=== PATIENT | male | born 1980 | race Caucasian/White ===

== ENCOUNTER 2021-05-31 12:26 | Emergency (ER) | payer SELFPAY ==
--- NOTE | 2021-05-31 14:16 | EDPHYS ---
Physician Documentation [facility] Name: Enrique Hinson Age: 40 yrs Sex: Male : 1980 Arrival Date: 05/31/2021 Time: 12:39 Bed 11 Private MD: ED Physician Chalino Mckeon HPI: 05/31 14:15 This 40 yrs old Male presents to ER via Unassigned with complaints of Cough, kb Congestion, Runny Nose. 14:12 Pt reports runny nose, cough and ear pain for 3 days. Denies fever. Needs covid test kb before he can go back to work. 14:15 The patient or guardian reports cough. Onset: The symptoms/episode began/occurred 3 kb day(s) ago. Severity of symptoms: At their worst the symptoms were mild, in the emergency department the symptoms are unchanged. Modifying factors: The symptoms are alleviated by nothing, the symptoms are aggravated by nothing. Associated signs and symptoms: Pertinent positives: earache, rhinorrhea, Pertinent negatives: chest pain, diarrhea, fever, nausea, sore throat, vomiting. The patient has not experienced similar symptoms in the past. The patient has not recently seen a physician. Historical: - Allergies: 14:46 No Known Allergies; jl7 - Home Meds: 14:46 None [Active]; jl7 - PMHx: 14:46 Hypertensive disorder; jl7 - PSHx: 14:46 Appendectomy; jl7 - Immunization history:: Adult Immunizations up to date. - Social history:: Smoking status: Patient denies any tobacco usage or history of. ROS: 14:14 Constitutional: Negative for fever, chills, and weight loss. kb 14:14 ENT: Positive for ear pain, rhinorrhea. 14:14 Respiratory: Positive for cough, Negative for dyspnea on exertion, hemoptysis, orthopnea, pleurisy, shortness of breath, sputum production, wheezing. 14:14 All other systems are negative. Exam: 14:15 Constitutional: This is a well developed, well nourished patient who is awake, alert, kb and in no acute distress. Head/Face: Normocephalic, atraumatic. ENT: Moist Mucous membranes Cardiovascular: Regular rate and rhythm with a normal S1 and S2. No gallops, murmurs, or rubs. No pulse deficits. Respiratory: Respirations even and unlabored. No increased work of breathing. Talking in full sentences Skin: Warm, dry with normal turgor. Normal color. MS/ Extremity: Pulses equal, no cyanosis. Neurovascular intact. Full, normal range of motion. Neuro: Awake and alert, GCS 15, oriented to person, place, time, and situation. Moves all extremities. Normal gait. Psych: Awake, alert, with orientation to person, place and time. Behavior, mood, and affect are within normal limits. Vital Signs: 13:49 Pulse Ox 97% ; jl7 14:16 Pulse 79; Resp 18; Temp 98.3; Pulse Ox 97% ; Weight 88.45 kg; Height 5 ft. 10 in. kb (177.80 cm); 14:34 BP 122 / 87; kb 14:16 Body Mass Index 27.98 (88.45 kg, 177.80 cm) kb MDM: 14:11 Patient medically screened. kb 14:12 Data reviewed: vital signs, nurses notes. Data interpreted: Pulse oximetry: on room air kb is 97 %. Interpretation: normal. Counseling: I had a detailed discussion with the patient and/or guardian regarding: the historical points, exam findings, and any diagnostic results supporting the discharge/admit diagnosis, the need for outpatient follow up, a family practitioner, to return to the emergency department if symptoms worsen or persist or if there are any questions or concerns that arise at home. 05/31 14:11 Order name: COVID-19 SARS RT PCR (Document "Date of Onset" if Symptomatic); Complete kb Time: 16:23 Administered Medications: No medications were administered Disposition: 15:35 Co-signature as Attending Physician, Chalino Mckeon MD I agree with the assessment and kdr plan of care. Disposition Summary: 05/31/21 14:16 Discharge Ordered Location: Home kb Condition: Stable kb Diagnosis - Acute upper respiratory infection, unspecified kb Followup: kb - With: Emergency Department - When: As needed - Reason: Worsening of condition Followup: kb - With: Private Physician - When: 2 - 3 days - Reason: Recheck today's complaints, Continuance of care, Re-evaluation by your physician Discharge Instructions: - Discharge Summary Sheet kb - Upper Respiratory Infection, Adult, [id number] kb - Viral Respiratory Infection, [id number] kb Forms: - Medication Reconciliation Form kb - Thank You Letter kb - Antibiotic Education kb - Prescription Opioid Use kb Signatures: Dispatcher [employer] EDStacey Chinchilla, TAMPER OPERATOR-C NUPUR-Chalino Mirza MD MD kdr Leal, Jahala RN RN jl7 Corrections: (The following items were deleted from the chart) 14:47 14:46 PSHx: None; jl7 jl7
--- NOTE | 2021-05-31 14:48 | ER ---
Nurse's Notes [facility] Name: Enrique Hinson Age: 40 yrs Sex: Male : 1980 Arrival Date: 05/31/2021 Time: 12:39 Bed 11 Private MD: Diagnosis: Acute upper respiratory infection, unspecified Presentation: 05/31 13:49 Chief complaint: Patient states: runny nose, cough, ear pain x 3 days. jl7 13:49 Coronavirus screen: Vaccine status: Patient reports receiving the 1st dose of the Covid jl7 vaccine. Client presents with at least one sign or symptom that may indicate coronavirus-19. Standard/surgical mask placed on the client. Ebola Screen: No symptoms or risks identified at this time. Initial Sepsis Screen: Does the patient meet any 2 criteria? No. Patient's initial sepsis screen is negative. Does the patient have a suspected source of infection? No. Patient's initial sepsis screen is negative. Risk Assessment: Do you want to hurt yourself or someone else? Patient reports no desire to harm self or others. Onset of symptoms was May 28, 2021. 13:49 Method Of Arrival: Ambulatory 7 13:49 Acuity: MARILIN 4 jl7 Historical: - Allergies: 14:46 No Known Allergies; jl7 - Home Meds: 14:46 None [Active]; jl7 - PMHx: 14:46 Hypertensive disorder; jl7 - PSHx: 14:46 Appendectomy; jl7 - Immunization history:: Adult Immunizations up to date. - Social history:: Smoking status: Patient denies any tobacco usage or history of. Vital Signs: 13:49 Pulse Ox 97% ; jl7 14:16 Pulse 79; Resp 18; Temp 98.3; Pulse Ox 97% ; Weight 88.45 kg; Height 5 ft. 10 in. kb (177.80 cm); 14:34 BP 122 / 87; kb 14:16 Body Mass Index 27.98 (88.45 kg, 177.80 cm) ED Course: 12:39 Patient arrived in ED. am2 13:38 St[facility] Guevara FNP-C [facility] kb 13:38 Chalino Mckeon MD is Attending Physician. kb 14:45 Amie Bernstein RN is Primary Nurse. jl7 14:46 Triage completed. jl7 14:46 Arm band placed on right wrist. 14:47 COVID swab sent to lab. Patient did not have IV access during this emergency room visit.jl7 Administered Medications: No medications were administered Outcome: 14:16 Discharge ordered by . sammy 14:47 Discharged to home ambulatory. jl7 14:47 Condition: stable 14:47 Discharge instructions given to patient, Instructed on discharge instructions, follow up and referral plans. Demonstrated understanding of instructions, follow-up care. 14:47 Patient left the ED. jl7 Signatures: Stacey Guevara, LEAF BLENDER-C LEAF BLENDER-Ckb Amie Bernstein RN RN jl7 Myla Leger am2 Corrections: (The following items were deleted from the chart) 14:47 14:46 PSHx: None; juan jl
[2021-05-31 14:58] VITALS: O2SAT 97
[2021-05-31 14:59] VITALS: TEMP 98.3
[2021-05-31 15:00] VITALS: BP 122/87
== END 2021-05-31 14:47 | disposition home or self-care (01) ==
LOC: ER 12:26
DX: U07.1 COVID-19 (principal); J06.9 Acute upper respiratory infection, unspecified
CPT/HCPCS: 99281; U0003

== ENCOUNTER 2021-10-19 14:12 | Emergency (ER) | payer OTHER, SELFPAY ==
[2021-10-19] MEDS ORDERED: CYCLOBENZAPRINE 10 MG TAB ONE (15:34)
[2021-10-19] MEDS ORDERED: KETOROLAC 30 MG/ML INJ ONE (15:34)
--- NOTE | 2021-10-19 17:02 | RAD REPORT ---
EXAM DESCRIPTION: RAD - C Spine Ap/Lat - 10/19/2021 4:52 pm CLINICAL HISTORY: PAIN COMPARISON: No comparisons FINDINGS: Cervical bodies are normal in height and alignment.No fracture or acute bony process seen. Slight disc thinning with posterior osteophyte noted at C3-4 and C4-5. No prevertebral soft tissue thickening or other suspicious soft tissue finding. The odontoid is normal and the lateral masses are symmetric. IMPRESSION: Mild upper cervical spondylosis.
--- NOTE | 2021-10-19 17:32 | ER ---
Nurse's Notes [facility] Name: Enrique Hinson Age: 41 yrs Sex: Male : 1980 Arrival Date: 10/19/2021 Time: 14:18 Bed 11 Private MD: Diagnosis: Sprain of ligaments of cervical spine, initial encounter;Radiculopathy, cervical region Presentation: 10/19 14:26 Chief complaint: Patient states: Right sided neck pain and back pain. Injured neck and ld1 back at work 1 month ago. Pt c/o Limited ROM in neck. Coronavirus screen: At this time, the client does not indicate any symptoms associated with coronavirus-19. Ebola Screen: No symptoms or risks identified at this time. Initial Sepsis Screen: Does the patient meet any 2 criteria? No. Patient's initial sepsis screen is negative. Does the patient have a suspected source of infection? No. Patient's initial sepsis screen is negative. Risk Assessment: Do you want to hurt yourself or someone else? Patient reports no desire to harm self or others. Onset of symptoms was October 19, 2021. 14:26 Method Of Arrival: Ambulatory ld1 14:26 Acuity: MARILIN 4 ld1 Triage Assessment: 14:27 General: Appears in no apparent distress. comfortable, Behavior is calm, cooperative, ld1 appropriate for age. Pain: Complains of pain in scalp and back Pain does not radiate. Pain currently is 7 out of 10 on a pain scale. EENT: No signs and/or symptoms were reported regarding the EENT system. Neuro: Level of Consciousness is awake, alert, obeys commands, Oriented to person, place, time, situation. Respiratory: Airway is patent Respiratory effort is even, unlabored. Historical: - Allergies: 14:27 No Known Allergies; ld1 - Home Meds: 14:27 None [Active]; ld1 - PMHx: 14:27 Hypertensive disorder; ld1 - PSHx: 14:27 Appendectomy; ld1 - Immunization history:: Adult Immunizations up to date, Client reports having NOT received the Covid vaccine. - Social history:: Smoking status: Patient denies any tobacco usage or history of. Patient uses alcohol, occasionally. Vital Signs: 14: BP 146 / 108; Pulse 70; Resp 18; Temp 98.3(TE); Pulse Ox 99% on R/A; Weight 88.45 kg; ld1 Height 5 ft. 9 in. (175.26 cm); Pain 6/10; 14:26 Body Mass Index 28.80 (88.45 kg, 175.26 cm) ld1 ED Course: 14:18 Patient arrived in ED. am2 14:26 [facility]att [facility] 14:26 Mohamud Bernardo MD is Attending Physician. [facility] 14:26 Triage completed. ld1 14:27 Arm band placed on right wrist. ld1 15:36 Anai Moreno, RN is Primary Nurse. iw 16:54 XRAY C Spine Ap/lat In Process Unspecified. EDMS 17:30 Benjamin Ludwig MD is Referral Physician. [facility] Administered Medications: 15:37 Drug: Ketorolac 60 mg Route: IM; Site: right deltoid; iw 15:37 Drug: Flexeril (cyclobenzaprine) 10 mg Route: PO; iw Outcome: 17:31 Discharge ordered by . [facility] 17:58 Patient left the ED. iw Signatures: Dispatcher [employer] EDCO Anai Moreno, RN RN iw Myla Leger am2 Kelsie Almonte RN RN 1 Zofia Pratt FNP [place] [id number]
--- NOTE | 2021-10-19 17:32 | EDPHYS ---
Physician Documentation [facility] Name: Enrique Hinson Age: 41 yrs Sex: Male : 1980 Arrival Date: 10/19/2021 Time: 14:18 Bed 11 Private MD: DENYS Physician Mohamud Bernardo HPI: 10/19 14:30 This 41 yrs old Male presents to ER via Ambulatory with complaints of Neck and Upper jh7 Back Pain. 14:30 Patient reports that 1 month ago he injured the right side of his neck while working. 7 States that the pain is on the right side of his neck and that he will get shooting pain down his right arm. Reports that he has full range of motion, but that the pain is starting to interfere with his work.. Historical: - Allergies: 14:27 No Known Allergies; ld1 - Home Meds: 14:27 None [Active]; ld1 - PMHx: 14:27 Hypertensive disorder; ld1 - PSHx: 14:27 Appendectomy; ld1 - Immunization history:: Adult Immunizations up to date, Client reports having NOT received the Covid vaccine. - Social history:: Smoking status: Patient denies any tobacco usage or history of. Patient uses alcohol, occasionally. ROS: 14:30 Constitutional: Negative for fever, chills, and weight loss, ENT: Negative for injury, jh7 pain, and discharge, Cardiovascular: Negative for chest pain, palpitations, and edema, Respiratory: Negative for shortness of breath, cough, wheezing, and pleuritic chest pain, Abdomen/GI: Negative for abdominal pain, nausea, vomiting, diarrhea, and constipation, Back: Negative for injury and pain, Skin: Negative for injury, rash, and discoloration, Neuro: Negative for headache, weakness, numbness, tingling, and seizure. 14:30 Neck: Positive for pain with movement, of the neck, Negative for injury or acute deformity, swelling, bony tenderness. 14:30 All other systems are negative. Exam: 14:30 Constitutional: This is a well developed, well nourished patient who is awake, alert, jh7 and in no acute distress. Cardiovascular: Regular rate and rhythm with a normal S1 and S2. No gallops, murmurs, or rubs. Normal PMI, no JVD. No pulse deficits. Respiratory: Lungs have equal breath sounds bilaterally, clear to auscultation and percussion. No rales, rhonchi or wheezes noted. No increased work of breathing, no retractions or nasal flaring. Abdomen/GI: Soft, non-tender, with normal bowel sounds. No distension or tympany. No guarding or rebound. No evidence of tenderness throughout. Back: No spinal tenderness. No costovertebral tenderness. Full range of motion. Skin: Warm, dry with normal turgor. Normal color with no rashes, no lesions, and no evidence of cellulitis. Neuro: Awake and alert, GCS 15, oriented to person, place, time, and situation. . Motor strength 5/5 in all extremities. Sensory grossly intact. Normal gait. 14:30 Neck: External neck: is normal, C-spine: appears grossly normal, No tenderness to palpation over C-spine. Pain elicited on the right side of the neck and over the trapezius muscle with movement of the right upper extremity. No swelling, bruising, or deformity noted.. Vital Signs: 14:26 BP 146 / 108; Pulse 70; Resp 18; Temp 98.3(TE); Pulse Ox 99% on R/A; Weight 88.45 kg; ld1 Height 5 ft. 9 in. (175.26 cm); Pain 6/10; 14:26 Body Mass Index 28.80 (88.45 kg, 175.26 cm) ld1 MDM: 15:16 Patient medically screened. [facility] 17:30 Data reviewed: vital signs, nurses notes, radiologic studies, plain films. Data [facility] interpreted: Pulse oximetry: is 99 %. Interpretation: normal. Counseling: I had a detailed discussion with the patient and/or guardian regarding: the historical points, exam findings, and any diagnostic results supporting the discharge/admit diagnosis, the need for outpatient follow up, Spine/neuro surg, to return to the emergency department if symptoms worsen or persist or if there are any questions or concerns that arise at home. Response to treatment: the patient's symptoms have markedly improved after treatment. ED course: Reviewed the nonacute findings noted on the x-ray. The patient remained stable throughout the visit, and his symptoms significantly improved after medication administration. Due to his injury occurring greater than 1 month ago, he was advised to follow-up with neuro surg/spine for further care. If the patient symptoms worsen, or he develops any new concerning symptoms, he is advised to return to the ER for further eval. The patient agreed with the plan of care.. 10/19 15:19 Order name: XRAY C Spine Ap/lat; Complete Time: 17:25 [facility] Administered Medications: 15:37 Drug: Ketorolac 60 mg Route: IM; Site: right deltoid; iw 15:37 Drug: Flexeril (cyclobenzaprine) 10 mg Route: PO; iw Disposition Summary: 10/19/21 17:31 Discharge Ordered Location: Home [facility] Problem: an ongoing problem [facility] Symptoms: have improved [facility] Condition: Stable [facility] Diagnosis - Sprain of ligaments of cervical spine, initial encounter [facility] - Radiculopathy, cervical region [facility] Followup: [facility] - With: Benjamin Ludwig MD - When: 2 - 3 days - Reason: Recheck today's complaints Discharge Instructions: - Discharge Summary Sheet [facility] - Cervical Radiculopathy [facility] - Cervical Sprain [facility] Forms: - Work release form iw - Medication Reconciliation Form [facility] - Thank You Letter [facility] - Antibiotic Education [facility] - Prescription Opioid Use [facility] Prescriptions: - Naprosyn 500 mg Oral Tablet - take 1 tablet by ORAL route 2 times per day take with food; 30 tablet; Refills: [facility] 0, Product Selection Permitted - Zanaflex 4 mg Oral Tablet - take 1 tablet by ORAL route every 8 hours As needed; 20 tablet; Refills: 0, jh7 Product Selection Permitted Signatures: Dispatcher [employer] Anai Hou RN RN Kelsie Almonte RN RN ld1 Zofia Pratt FNP PROBATION COUNSELOR [facility]
== END 2021-10-19 17:58 | disposition home or self-care (01) ==
LOC: ER 14:12
DX: S13.4XXA Sprain of ligaments of cervical spine, initial encounter (principal); M54.12 Radiculopathy, cervical region; I10 Essential (primary) hypertension
CPT/HCPCS: 72040; 96372; 99283

== ENCOUNTER 2021-11-20 05:01 | Emergency (ER) | payer SELFPAY ==
--- NOTE | 2021-11-20 06:14 | ER ---
Nurse's Notes [facility] Name: Enrique Hinson Age: 41 yrs Sex: Male : 1980 Arrival Date: 11/20/2021 Time: 05:07 Bed 5 Private MD: Diagnosis: SARS-associated coronavirus as the cause of diseases classified elsewhere Presentation: 11/20 05:17 Chief complaint: Patient states: cough, nasal congestion. Coronavirus screen: Client as6 presents with at least one sign or symptom that may indicate coronavirus-19. Standard/surgical mask placed on the client. Provider contacted for isolation considerations. Ebola Screen: No symptoms or risks identified at this time. Initial Sepsis Screen: Does the patient meet any 2 criteria? No. Patient's initial sepsis screen is negative. Does the patient have a suspected source of infection? No. Patient's initial sepsis screen is negative. Risk Assessment: Do you want to hurt yourself or someone else? Patient reports no desire to harm self or others. Onset of symptoms was November 18, 2021. 05:17 Method Of Arrival: Ambulatory as6 05:17 Acuity: MARILIN 4 as6 Historical: - Allergies: 05:21 No Known Allergies; as6 - Home Meds: 05:21 None [Active]; as6 - PMHx: 05:21 Hypertensive disorder; as6 - PSHx: 05:21 Appendectomy; as6 - Immunization history:: Adult Immunizations unknown. - Social history:: Smoking status: Patient denies any tobacco usage or history of. - Family history:: not pertinent. - Hospitalizations: : No recent hospitalization is reported. Screenin:22 Abuse screen: Denies threats or abuse. Denies injuries from another. Nutritional as6 screening: No deficits noted. Tuberculosis screening: No symptoms or risk factors identified. Fall Risk None identified. Assessment: 05:22 General: Appears in no apparent distress. Behavior is calm, cooperative. Pain: Denies as6 pain. Neuro: Kaiser Agitation-Sedation Scale (RASS): 0 - Alert and Calm Level of Consciousness is awake, alert, obeys commands, Oriented to person, place, time, situation. Cardiovascular: JVD is absent Patient's skin is warm and dry. Respiratory: Reports cough that is Respiratory effort is even, unlabored, Respiratory pattern is regular, symmetrical. EENT: Reports nasal congestion. Vital Signs: 05:17 BP 148 / 93; Pulse 78; Resp 18 S; Temp 98.6(O); Pulse Ox 96% on R/A; Weight 86.18 kg as6 (R); Height 5 ft. 10 in. (177.80 cm) (R); Pain 0/10; 06:21 BP 137 / 96; Pulse 71; Resp 18 S; Pulse Ox 98% on R/A; as6 05:17 Body Mass Index 27.26 (86.18 kg, 177.80 cm) as6 ED Course: 05:07 Patient arrived in ED. 05:08 Jose Epstein MD is Attending Physician. rn 05:17 Rashad Marrero, CAROLINE is Primary Nurse. as6 05:21 Triage completed. as6 05:21 Arm band placed on. as6 05:22 Bed in low position. Call light in reach. Side rails up X2. Pulse ox on. NIBP on. as6 06:22 No provider procedures requiring assistance completed. Patient did not have IV access as6 during this emergency room visit. Administered Medications: No medications were administered Medication: 05:23 VIS not applicable for this client. as6 Outcome: 06:13 Discharge ordered by . rn 06:22 Discharged to home ambulatory. as6 06:22 Condition: stable 06:22 Discharge instructions given to patient, Instructed on discharge instructions, follow up and referral plans. Demonstrated understanding of instructions, follow-up care. 06:22 Patient left the ED. as6 Signatures: Jose Epstein MD MD rn Alexander, Jessica [facility] Rashad Marrero, CAROLINE RN as6
--- NOTE | 2021-11-20 06:14 | EDPHYS ---
Physician Documentation [facility] Name: Enrique Hinson Age: 41 yrs Sex: Male : 1980 Arrival Date: 11/20/2021 Time: 05:07 Bed 5 Private MD: ED Physician Jose Epstein HPI: 11/20 05:16 This 41 yrs old Male presents to ER via Unassigned with complaints of Fever, Cough, rn Congestion, Sore Throat. 05:16 The patient reports fever, not measured (subjective). Onset: The symptoms/episode rn began/occurred 2 day(s) ago. Modifying factors: there are no obvious modifying factors. Associated signs and symptoms: Pertinent positives: chills, cough, runny nose, sinus drainage, Pertinent negatives: abdominal pain, altered mental status, chest pain, diarrhea, skin rash, shortness of breath, swelling, vomiting. Severity of symptoms: At their worst the symptoms were mild in the emergency department the symptoms are unchanged. The patient has experienced similar episodes in the past. The patient has not recently seen a physician. Pt reports 2-3 days of fever, chills, runny nose, sinus drainage. No sob. No chest pain. Sent from work for COVID testing. Does not feel terrible. . Historical: - Allergies: 05:21 No Known Allergies; as6 - Home Meds: 05:21 None [Active]; as6 - PMHx: 05:21 Hypertensive disorder; as6 - PSHx: 05:21 Appendectomy; as6 - Immunization history:: Adult Immunizations unknown. - Social history:: Smoking status: Patient denies any tobacco usage or history of. - Family history:: not pertinent. - Hospitalizations: : No recent hospitalization is reported. ROS: 05:16 Constitutional: + fever and chills Eyes: Negative for injury, pain, redness, and admission discharge rn, ENT: + nasal drainage and sinus drainage Neck: Negative for injury, pain, and swelling, Cardiovascular: Negative for chest pain, palpitations, and edema, Respiratory: Negative for shortness of breath, wheezing, and pleuritic chest pain, Abdomen/GI: Negative for abdominal pain, nausea, vomiting, diarrhea, and constipation, MS/Extremity: Negative for injury and deformity, Skin: Negative for injury, rash, and discoloration, Neuro: Negative for headache, weakness, numbness, tingling, and seizure. Exam: 05:16 Constitutional: This is a well developed, well nourished patient who is awake, alert, rn and in no acute distress. Ambulatory to room without difficulty Head/Face: Normocephalic, atraumatic. Eyes: Periorbital areas with no swelling, redness, or edema. ENT: NO stridor Neck: Trachea midline, no masses palpated, and no cervical lymphadenopathy. Cardiovascular: Regular rate and rhythm. No pulse deficits. Respiratory: Speaking full sentences, unlabored. No increased work of breathing, no retractions or nasal flaring. Skin: Warm, dry MS/ Extremity: Pulses equal, no cyanosis. Neuro: Awake and alert, GCS 15 Vital Signs: 05:17 BP 148 / 93; Pulse 78; Resp 18 S; Temp 98.6(O); Pulse Ox 96% on R/A; Weight 86.18 kg as6 (R); Height 5 ft. 10 in. (177.80 cm) (R); Pain 0/10; 06:21 BP 137 / 96; Pulse 71; Resp 18 S; Pulse Ox 98% on R/A; as6 05:17 Body Mass Index 27.26 (86.18 kg, 177.80 cm) as6 MDM: 05:08 Patient medically screened. rn 06:13 Differential diagnosis: viral Infection, URI. Data reviewed: vital signs, nurses notes, rn post partum test result(s), and as a result, I will discharge patient. Counseling: I had a detailed discussion with the patient and/or guardian regarding: the historical points, exam findings, and any diagnostic results supporting the discharge/admit diagnosis, the need for outpatient follow up, to return to the emergency department if symptoms worsen or persist or if there are any questions or concerns that arise at home. Special discussion: I discussed with the patient/guardian in detail that at this point there is no indication for admission to the hospital. It is understood, however, that if the symptoms persist or worsen the patient needs to return immediately for re-evaluation. 11/20 05:15 Order name: SARS-COV-2 RT PCR (Document "Date of Onset" if Symptomatic) rn 11/20 05:15 Order name: Flu rn Administered Medications: No medications were administered Disposition Summary: 11/20/21 06:13 Discharge Ordered Location: Home rn Problem: new rn Symptoms: have improved rn Condition: Stable rn Diagnosis - SARS-associated coronavirus as the cause of diseases classified elsewhere rn Followup: rn - With: Private Physician - When: As needed - Reason: Recheck today's complaints, Re-evaluation by your physician Discharge Instructions: - Discharge Summary Sheet rn - COVID-19 rn - 10 Things You Can Do to Manage Your COVID-19 Symptoms at Home - [facility] rn - Prevent the Spread of COVID-19 if You Are Sick - [facility] rn Forms: - Medication Reconciliation Form rn - Thank You Letter rn - Antibiotic attorney - Prescription Opioid Use rn Signatures: Dispatcher [employer] Jose Kenney MD MD rn Slawson, Ashby RN RN as6
[2021-11-20 06:31] VITALS: TEMP 98.6
[2021-11-20 06:34] VITALS: BP 137/96; O2SAT 98
== END 2021-11-20 06:22 | disposition home or self-care (01) ==
LOC: ER 05:01
DX: U07.1 COVID-19 (principal); I10 Essential (primary) hypertension
CPT/HCPCS: 87804; 99283; U0003